=== PATIENT | male | born 1990 | race Caucasian/White ===

== ENCOUNTER 2022-02-28 10:49 | Emergency (ER) | payer OTHER, SELFPAY ==
--- NOTE | ~2022-02-28 | XR_ITS ---
EXAMINATION: XR FOOT, RIGHT CLINICAL INFORMATION: Pain and swelling COMPARISON: None TECHNIQUE: AP, lateral, and oblique views of the right foot. FINDINGS: Bone alignment is normal. No fracture or dislocation. Normal joint spaces. Diffuse soft tissue swelling of the midfoot. No abnormal air collection or radiopaque soft tissue foreign body. XR/XR foot RT 2V IMPRESSION: Soft tissue swelling.
[2022-02-28 10:57] VITALS: BP 117/69; PULSE 93; RESP 18; TEMP 36.9; O2SAT 97; BMI 30.7
--- NOTE | 2022-02-28 11:38 | ED.GENADULT ---
HPI - General Adult General Chief complaint: Extremity Injury, Lower Stated complaint: Swollen R foot Time Seen by Provider: 02/28/22 11:38 Source: patient Mode of arrival: ambulatory Limitations: no limitations History of Present Illness HPI narrative: Patient is a 31 year old assigned male at with no reported medical history presenting to the emergency department today with right foot pain. Patient states that last night he tried to kick a waste basket and ended up kicking a wall. Patient denies any dizziness, lightheadedness, abdominal pain, nausea, vomiting, fever, chills, blurry vision, double vision, loss of vision, chest pain, difficulty breathing, shortness of breath, back pain, night sweats, pain with urination, increased urinary frequency, increased urinary urgency, blood in his urine or stool, syncope or a near syncopal episode, bowel incontinence, bladder incontinence, bowel retention, bladder retention, or any other complaints at this time. Onset (ago): day(s) (1) Severity: mild Severity scale (1-10): 3 Quality: dull Pain Consistency: constant Relieving factors: none Exacerbating factors: none Associated symptoms: denies other symptoms Treatments prior to arrival: none Related Data Allergies Allergy/AdvReac Type Severity Reaction Status Date / Time aspirin [ASA] Allergy Intermediate SWOLLEN, Verified 02/28/22 11:00 swelling Review of Systems Constitutional: Constitutional: Reports no additional constitutional complaints, Denies chills, Denies fever(s) and Denies night sweats Eyes: Eyes: Reports no additional eye complaints, Denies blurry vision, Denies change in vision, Denies diplopia, Denies eye discharge, Denies loss of vision and Denies eye pain ENT: Denies dizziness Cardiovascular: Cardiovascular: Reports no additional cardiovascular complaints, Denies chest pain, Denies lightheadedness, Denies Loss of Consciousness and Denies dyspnea Respiratory: Respiratory: Reports no additional respiratory complaints and Denies dyspnea Gastrointestinal: Gastrointestinal: Reports no additional gastrointestinal complaints, Denies abdominal pain, Denies melena, Denies hematochezia, Denies change in bowel habits and Denies change in stool character Genitourinary: Genitourinary: Reports no additional male genitourinary complaints, Denies hematuria, Denies oliguria, Denies difficulty urinating, Denies dysuria, Denies urinary frequency, Denies urinary hesitancy, Denies urinary incontinence and Denies urinary urgency Musculoskeletal: Musculoskeletal: Reports no additional musculoskeletal complaints, Denies numbness and Denies tingling Comments: right foot pain Neurologic: Denies dizziness, Denies loss of vision, Denies numbness and Denies tingling Psychiatric: Psychiatric: Reports no additional psychiatric complaints Endocrine: Endocrine: Reports no additional endocrine complaints Hematologic/Lymphatic: Hematologic/Lymphatic: Reports no additional hematologic/lymphatic complaints Allergic/Immunologic: Allergic/Immunologic: Reports no additional allergic/immunologic complaints [facility] Past Medical History Attestation statement: The following information was validated with the patient. Source: old records reviewed and nursing notes reviewed Social History Social History Advance Directives: No Advance Directives Information Provided: No Physical Exam ED Vital Signs: Vital Signs - 24 hr 02/28/22 10:57 Temperature 98.4 F Pulse Rate 93 Respiratory Rate 18 Blood Pressure 117/69 Pulse Oximetry 97 Oxygen Delivery Method Room Air BMI result Body Mass Index 30.7 Const General: cooperative, no acute distress, alert and awake Nutritional Appearance: well nourished Orientation/consciousness: patient oriented x3 Limitations: no limitations HENMT Head: Yes normal to inspection and Yes atraumatic Ears: hearing grossly normal bilaterally and external ears normal General nose exam: Normal external nose present, no nasal discharge noted and no epistaxis Face and sinus: Yes normal facial exam, No abrasion and No laceration Mouth: Normal oral and palatal mucosa present, no drooling and no muffled voice Eyes General: appearance normal, both eyes and all related structures Periorbital: periorbital findings normal Eyelids: Yes eyelids normal Conjunctivae: conjunctivae normal Pupils: Equal, round and reactive pupils present EOM: EOMs intact bilaterally Neck Neck: Yes normal visual inspection, Yes full ROM and Yes no lymphadenopathy Chest Chest palpation & inspection: normal inspection of the chest Resp Effort & Inspection: normal respiratory effort and able to speak in complete sentences Auscultation: clear to auscultation bilaterally Cardio Rate: regular rate Rhythm: regular rhythm GI Inspection: Yes normal to inspection Neuro General: patient oriented x3 and moves all extremities Cranial nerves: Yes Equal, round and reactive pupils present Cognition (Neuro): normal cognition Motor exam (neuro): 5/5 motor strength present throughout Sensory Exam: Normal double simultaneous stimulation for sensation Coordination: [id number] test normal Extrem Other: mild bruising to the dorsal aspect of the right foot General: Yes full ROM and Yes capillary refill normal Psych Appearance: grossly normal Mental Status: mental status grossly normal Affect: normal affect Attitude: cooperative Thought process: Normal thought process present Thought content: Normal thought content present Insight: Good insight present (Psych) Procedures Orthopedic Splinting/Casting Injury #1: Side: right Lower Extremity Injury Location: foot Lower Extremity Immobilizer: [employer] Other Orthopedic Equipment: crutches Medical Decision Making Medical Decision Making MDM Narrative: Patient is a 31 year old assigned male at with no reported medical history presenting to the emergency department today with right foot pain. Patient's physical exam showed minimal bruising to the dorsal aspect of the right foot. Patient's right foot x-ray showed no acute manuela process. I explained my physical exam findings as well as all test results to the patient. I answered all questions asked by the patient. Patient was placed in a walking boot and given crutches with crutch instructions. I stressed the importance of the patient taking his medication as prescribed. I stressed the importance of the patient following up with his primary care provider and an orthopedic provider. I stressed the importance of the patient returning to the emergency department immediately if his symptoms were to worsen or if he were to develop any dizziness, shortness of breath, difficulty breathing, chest pain, blurry vision, loss of vision, nausea, vomiting, abdominal pain, fever, chills, back pain, or any other complaints. Patient verbalized agreement and understanding with this treatment plan and discharge. Differential Diagnosis Differential Diagnoses: The differential diagnosis associated with the presentation includes foot pain, foot fracture, foot sprain Radiology Impression Discussion of test interpretation with radiology: I have reviewed the radiologist's reading. Radiologist Impression: My interpretation is in agreement with the radiologist's impression of this imaging study. EXAMINATION: XR FOOT, RIGHT CLINICAL INFORMATION: Pain and swelling? COMPARISON: None? TECHNIQUE: AP, lateral, and oblique views of the right foot. FINDINGS: Bone alignment is normal. No fracture or dislocation. Normal joint spaces. Diffuse soft tissue swelling of the midfoot. No abnormal air collection or radiopaque soft tissue foreign body.? XR/XR foot RT 2V IMPRESSION: Soft tissue swelling. Dictated By: Cheyanne Daley MD Signed By: Electronically signed by Cheyanne Daley MD 02/28/22 7961 Discharge Plan Discharge Clinical Impression: Foot injury Patient Disposition: Home, Self-Care Instructions: Crutch Instructions (ED) Additional Instructions: Follow up with your primary care provider and an orthopedic provider. Return to the emergency department immediately if your symptoms worsen or if you develop any dizziness, shortness of breath, difficulty breathing, chest pain, blurry vision, loss of vision, nausea, vomiting, abdominal pain, fever, chills, back pain, or any other complaints. Referrals: [facility] [Provider Group] (Call to establish and follow up with an orthopedic provider. ) Farida Diaz MD [Primary Care Provider] - Interventions: ED Discharge Assessment Last Done: 02/28/22 12:43 Discharge Date/Time: 02/28/22 12:43 Print Language: Setswana
--- NOTE | 2022-02-28 12:47 | PC.NURSE ---
walking boot and crutches provided by [email or web address], education provided, pt to follow up with ortho.
== END 2022-02-28 12:43 | disposition home or self-care (01) ==
PROVIDERS: Emergency Provider Student in an Organized Health Care Education/Training Program; PCP Internal Medicine
DX: S93.601A Unspecified sprain of right foot, initial encounter (principal); R60.0 Localized edema; X50.1XXA Overexertion from prolonged static or awkward postures, initial encounter; Y93.9 Activity, unspecified; Y92.9 Unspecified place or not applicable; Y99.9 Unspecified external cause status
CPT/HCPCS: 29515; 73620; 99283; 99284

== ENCOUNTER → 2022-03-16 10:00 | Outpatient (BNVA) | payer SELFPAY | PROVIDERS: PCP Internal Medicine; Visit Provider Physician Assistant | DX: S90.31XA Contusion of right foot, initial encounter (principal) | CPT/HCPCS: 99202 ==

== ENCOUNTER 2022-07-17 17:33 | Emergency (ER) | payer OTHER, SELFPAY ==
--- NOTE | 2022-07-17 18:55 | ED.URI ---
HPI - URI/Sore Throat General Chief Complaint: General Medical <Chelle Chang NP - Last Filed: 07/17/22 18:57> Stated Complaint: Sore throat <Chelle Chang NP - Last Filed: 07/17/22 18:57> Time Seen by Provider: 07/17/22 20:22 <Chelle Chang NP - Last Filed: 07/17/22 18:57> Source: patient <LUCAS Pereyra - Last Filed: 07/18/22 02:03> Mode of arrival: ambulatory <LUCAS Pereyra Last Filed: 07/18/22 02:03> Limitations: no limitations <LUCAS Pereyra Last Filed: 07/18/22 02:03> History of Present Illness HPI Narrative: 32-year-old male presents to the ED for sore throat for 1 week. Patient denies any drooling, shortness of breath, change in voice, or inabiliaty to swallow foods or liquids <LUCAS Pereyra Last Filed: 07/18/22 02:03> Related Data Home Medications: Previous Rx's Medication Instructions Recorded amoxicillin 875 mg-potassium 1 tab PO BID 10 days #20 tabs 07/17/22 clavulanate 125 mg tablet naproxen 500 mg tablet 500 mg PO BID PRN pain 7 days #14 07/17/22 tabs <Chelle Chang NP - Last Filed: 07/17/22 18:57> Allergies/Adverse Reactions: Allergies Allergy/AdvReac Type Severity Reaction Status Date / Time No Known Allergies Allergy Verified 07/17/22 18:59 <Chelle Chang NP - Last Filed: 07/17/22 18:57> Review of Systems Review of Systems: Source <LUCAS Pereyra Last Filed: 07/18/22 02:03> Yes all other systems are reviewed and are negative <LUCAS Pereyra Last Filed: 07/18/22 02:03> [facility] Social History Social History: Social History (Updated 03/16/22 @ 10:09 by Navdeep Jeter) Alcohol intake: former Patient Tobacco Use Status: Former Tobacco user Advance Directives: No Advance Directives Information Provided: No Current occupational status: employed Current occupation: access lead/ right hand dominant <Chelle Chang NP - Last Filed: 07/17/22 18:57> Physical Exam Vital Signs: Vital Signs: Last Vital Signs Temp 99.2 F 07/17/22 20:00 Pulse 96 07/17/22 18:56 Resp 18 07/17/22 18:56 BP 136/57 L 07/17/22 18:56 Pulse Ox 98 07/17/22 18:56 O2 Del Method Room Air 07/17/22 18:56 BMI result Body Mass Index 31.1 <Chelle Chang NP - Last Filed: 07/17/22 18:57> Vital Signs: Last Vital Signs Temp 99.2 F 07/17/22 20:00 Pulse 96 07/17/22 18:56 Resp 18 07/17/22 18:56 BP 136/57 L 07/17/22 18:56 Pulse Ox 98 07/17/22 18:56 O2 Del Method Room Air 07/17/22 18:56 BMI result Body Mass Index 31.1 <LUCAS Pereyra - Last Filed: 07/18/22 02:03> Const: General: cooperative, healthy appearing, comfortable, no acute distress, well developed, alert, awake and Physically active <LUCAS Pereyra Last Filed: 07/18/22 02:03> Orientation/consciousness: oriented to person, oriented to place, oriented to time and patient oriented x3 <LUCAS Pereyra - Last Filed: 07/18/22 02:03> HEENT: Head: Yes normal to inspection, Yes No palpable skull fracture present, Yes normocephalic, Yes atraumatic and No abrasion <LUCAS Pereyra Last Filed: 07/18/22 02:03> Throat: Yes posterior oropharynx normal, Yes uvula midline and Yes abnormal tonsil (exudates bilaterally) <LUCSA Pereyra Last Filed: 07/18/22 02:03> Eyes: General: appearance normal, both eyes and all related structures <LUCAS Pereyra Last Filed: 07/18/22 02:03> Neck: Neck: Yes normal visual inspection, Yes full ROM, Yes no lymphadenopathy, Yes no meningeal signs, Yes trachea midline, Yes supple, No anterior neck swelling and No tender <Sharath Michael, PA Last Filed: 07/18/22 02:03> Chest: Chest palpation & inspection: normal inspection of the chest and normal palpation of entire chest wall <LUCAS Pereyra Last Filed: 07/18/22 02:03> Resp: Effort & Inspection: normal respiratory effort and able to speak in complete sentences <LUCAS Pereyra Last Filed: 07/18/22 02:03> Auscultation: clear to auscultation bilaterally <LUCAS Pereyra Last Filed: 07/18/22 02:03> Cardio: Jugular venous distension: no JVD <LUCAS Pereyra Last Filed: 07/18/22 02:03> Heart sounds: S1 normal heart sound present and S2 normal heart sound present <LUCAS Pereyra Last Filed: 07/18/22 02:03> GI: Inspection: Yes normal to inspection and No abdominal wall ecchymosis <LUCAS Pereyra Last Filed: 07/18/22 02:03> Palpation (GI): Soft to palpation, not firm, nontender, no guarding and not rigid <LUCAS Pereyra Last Filed: 07/18/22 02:03> : General: No CVA tenderness and Yes no CVA tenderness <Sharath Michael, PA Last Filed: 07/18/22 02:03> Back/Spine/Pelvis: Back: no CVA tenderness, No CVA tenderness and No back tenderness <Sharath Michael, PA Last Filed: 07/18/22 02:03> Skin: General skin exam: no rashes or lesions noted and elasticity normal <Sharath Michael, PA Last Filed: 07/18/22 02:03> Neuro: General: oriented to person, oriented to place, oriented to time, patient oriented x3, gait normal, tone normal, moves all extremities, Normal light touch and pain sensation, no meningeal signs, no focal motor deficits, CN's II-XI intact bilaterally and normal sensation to monofilament <LUCAS Pereyra Last Filed: 07/18/22 02:03> Extrem: General: Yes normal to inspection and Yes full ROM <LUCAS Pereyra - Last Filed: 07/18/22 02:03> Psych: Appearance: grossly normal, well kempt and not disheveled <LUCAS Pereyra Last Filed: 07/18/22 02:03> Course Course Course Narrative: This is a rapid medical exam. Deferred additional HPI, ROS, PE to primary provider. 32yo male with no known medical history here with L >R sore throat x 1 week, diff swallowing, tactile temps. on exam patient a bilateral tonsillar erythema left greater than right. Uvula midline. No exudate. Tolerating secretions. Will send testing for strep, flu, COVID, RSV. VSS <Chelle Chang NP - Last Filed: 07/17/22 18:57> Medications Administered Discontinued Medications Generic Name Dose Route Start Last Admin Trade Name Freq PRN Reason Stop Dose Admin Ibuprofen 600 mg 07/17/22 18:58 07/17/22 19:01 Ibuprofen 600 Mg Tablet PO 07/17/22 18:59 600 mg ONCE ONE Administration <Chelle Chang NP - Last Filed: 07/17/22 18:57> Medications Administered Discontinued Medications Generic Name Dose Route Start Last Admin Trade Name Freq PRN Reason Stop Dose Admin Ibuprofen 600 mg 07/17/22 18:58 07/17/22 19:01 Ibuprofen 600 Mg Tablet PO 07/17/22 18:59 600 mg ONCE ONE Administration <LUCAS Pereyra Last Filed: 07/18/22 02:03> Medical Decision Making Medical Decision Making MDM Narrative: Anemia male presents to the ED for sore throat for one week. Patient denies any drooling, change in voice, chest pain, or shortness of breath. History and physical exam does not indicate peritonsillar abscess, Nasir angina, or retropharyngeal abscess <LUCAS Pereyra Last Filed: 07/18/22 02:03> Differential Diagnosis Differential Diagnoses: The differential diagnosis associated with the presentation includes (Peritonsillar abscess, strep pharyngitis, viral pharyngitis, Nasir's angina, retropharyngeal abscess) <LUCAS Pereyra Last Filed: 07/18/22 02:03> Admission/Observation Consideration of admission/observation: Escalation of care including admission/observation considered <LUCAS Pereyra - Last Filed: 07/18/22 02:03> Lab Data MDM Lab Attestation statement: I reviewed the patient's lab results. <LUCAS Pereyra - Last Filed: 07/18/22 02:03> Labs: Lab Results 07/17/22 07/17/22 Range/Units 19:53 19:53 Influenza Type A (PCR) NEGATIVE (Negative) Influenza Type B (PCR) NEGATIVE (Negative) RSV RNA Qual (PCR) NEGATIVE (Negative) SARS-CoV-2 RNA (RT-PCR) NEGATIVE (Negative) S. pyogenes GrpA KENDAL Positive A (Negative) <Chelle Chang NP - Last Filed: 07/17/22 18:57> Lab Results 07/17/22 07/17/22 Range/Units 19:53 19:53 Influenza Type A (PCR) NEGATIVE (Negative) Influenza Type B (PCR) NEGATIVE (Negative) RSV RNA Qual (PCR) NEGATIVE (Negative) SARS-CoV-2 RNA (RT-PCR) NEGATIVE (Negative) S. pyogenes GrpA KENDAL Positive A (Negative) <LUCAS Pereyra - Last Filed: 07/18/22 02:03> Prescription Management I considered prescription management with: Antibiotic <LUCAS Pereyra Last Filed: 07/18/22 02:03> Discharge Plan Discharge Clinical Impression: Strep tonsillitis <Chelle Chang NP - Last Filed: 07/17/22 18:57> Patient Disposition: Home, Self-Care <Chelle Chang NP - Last Filed: 07/17/22 18:57> Instructions: Tonsillitis (ED) <Chelle Chang NP - Last Filed: 07/17/22 18:57> Additional Instructions: Return to the ED immediately for any drooling, change in voice, inability to tolerate solid food/liquid, intractable fever, weakness, chills, or any other concerning symptoms. Please follow up with PCP <Chelle Chang NP - Last Filed: 07/17/22 18:57> Prescriptions: New amoxicillin-pot clavulanate 875-125 mg tablet 1 tab PO BID 10 Days Qty: 20 0RF naproxen 500 mg tablet 500 mg PO BID PRN (Reason: pain) 7 Days Qty: 14 0RF <Chelle Chang NP - Last Filed: 07/17/22 18:57> Stand Alone Forms: Work/School Release <Chelle Chang NP - Last Filed: 07/17/22 18:57> Interventions: ED Discharge Assessment Last Done: 07/17/22 21:01 <Chelle Chang NP - Last Filed: 07/17/22 18:57> Discharge Date/Time: 07/17/22 21:01 <Chelle Chang NP - Last Filed: 07/17/22 18:57> Print Language: Bulgarian <Chelle Chang NP - Last Filed: 07/17/22 18:57>
[2022-07-17 18:56] VITALS: BP 136/57; PULSE 96; RESP 18; TEMP 38.3; O2SAT 98; BMI 31.1
[2022-07-17] MEDS: Ibuprofen 600 MG TABLET PO (19:01)
[2022-07-17 20:00] VITALS: TEMP 37.3
[2022-07-17 20:09] LABS: IDNOW Serial# 08D9AD1C; Strep A Nucleic Acid Positive (Negative)
[2022-07-17 20:44] LABS: Influenza A PCR NEGATIVE (Negative); Influenza B PCR NEGATIVE (Negative); Resp Syncy Virus RNA Qual PCR NEGATIVE (Negative); SARS COV2 PCR INHOUSE NEGATIVE (Negative)
== END 2022-07-17 21:01 | disposition home or self-care (01) ==
PROVIDERS: Nurse Practitioner Family; Emergency Provider Emergency Medicine; PCP Internal Medicine
DX: J02.0 Streptococcal pharyngitis (principal); Z20.822 Contact with and (suspected) exposure to COVID-19; Z20.828 Contact with and (suspected) exposure to other viral communicable diseases
CPT/HCPCS: 0241U; 87651; 99283